=== PATIENT | female | born 1990 | race Caucasian/White ===

== ENCOUNTER 2024-03-31 07:27 | Outpatient (CLI) | payer OTHER, SELFPAY ==
--- NOTE | 2024-03-31 07:45 | MM_ITS ---
Patient: RAMONA BARRAGAN Facility:?[facility] Patient ID:?[id number] Site Patient ID:?[id number] Site :?1990 Study:?XRay-Breast Bilateral 3D W/CAD-03/31/2024 8:28:25 AM Ordering Physician:Shanae Noonan Final Report: DIGITAL DIAGNOSTIC BILATERAL MAMMOGRAM USING TOMOSYNTHESIS AND COMPUTER-AIDED DETECTION LEFT BREAST ULTRASOUND CLINICAL HISTORY: LEFT breast lump. COMPARISON: None. TECHNIQUE: Digital BILATERAL mammogram in four projections. Tomosynthesis and computer- aided detection utilized. Real-time ultrasound imaging of LEFT breast with imaging documentation. BREAST COMPOSITION: The breasts are heterogeneously dense, which may obscure small masses. FINDINGS: 3D CC/MLO bilateral mammogram images submitted. No suspicious masses or architectural distortion. No suspicious calcifications or adenopathy. Targeted LEFT breast ultrasound performed 6 o`clock 6 cm from the nipple. No fibrocystic change or suspicious mass. Normal fibroglandular tissue. IMPRESSION: No suspicious findings. No evidence of malignancy. RECOMMENDATIONS: Age-appropriate screening mammography. Results and recommendations discussed with the patient. BI-RADS Category 2: Benign A lay language report of this examination will be provided to the patient. Dictated by Abundio Parisi MD @ 03/31/2024 9:25:43 AM j/Dictated by: Abundio Parisi MD @ 03/31/2024 9:25:00 AM Signed by:Chanda Parisi MD @03/31/2024 1:04:21 PM (Electronic Signature)
--- NOTE | 2024-03-31 08:15 | US_ITS ---
Patient: RAMONA BARRAGAN Facility:?[facility] Patient ID:?[id number] Site Patient ID:?[id number] Site :?1990 Study:?US-Breast Left DR ALEJANDRE TO READ-03/31/2024 8:34:59 AM Ordering Physician:?ANDREE PASCUAL Final Report: PLEASE SEE DIGITAL DIAGNOSTIC BILATERAL MAMMOGRAM PERFORMED SAME DAY CRL:varinder reeder/Dictated by: Abundio Alejandre MD @ 03/31/2024 9:25:00 AM Signed by:?Abundio Alejandre MD @03/31/2024 1:04:22 PM (Electronic Signature)
== END 2024-03-31 07:28 | disposition home or self-care (01) ==
PROVIDERS: Visit Provider Advanced Practice Midwife
DX: N63.20 Unspecified lump in the left breast, unspecified quadrant (principal)
CPT/HCPCS: 76642; 77066; G0279

== ENCOUNTER 2025-01-05 08:13 | Outpatient (CLI) | payer OTHER, SELFPAY ==
[2025-01-07 04:33] LABS: HPV Source Cervix; HPV, High Risk by TMA Not Detected
== END 2025-01-05 08:14 | disposition home or self-care (01) ==
PROVIDERS: Visit Provider Obstetrics & Gynecology
DX: Z13.6 Encounter for screening for cardiovascular disorders (principal); Z12.4 Encounter for screening for malignant neoplasm of cervix; Z11.51 Encounter for screening for human papillomavirus (HPV)
CPT/HCPCS: 80061; 87624; 87625; 88141; 88142